=== PATIENT | female | born 1980 ===

== ENCOUNTER 2020-02-29 09:23 | Emergency (ER) | payer SELFPAY ==
[~2020-02-29] VITALS: Ht 149.9 cm; Wt 68.0 kg
--- OUTSIDE RECORDS SUMMARY | 2020-02-29 09:52 | XMS REPORT | Continuity of Care Document ---
Author Organization Unknown Address Unknown Phone Unavailable Allergies There is no data. Medications There is no data. Problems There is no data. Procedures There is no data. Results There is no data. Encounters ACCT No. Visit Date/Time Discharge Status Pt. Type Provider Facility Loc./Unit Complaint [id number] 02/29/2020 09:26:[address] Emergency THEODORE HERNANDEZ, ROEL Davalos [facility] ER FS CHEST PAIN
[2020-02-29] MEDS ORDERED: NS IV 500 ML 500 ML IV STA (09:57)
--- NOTE | 2020-02-29 10:01 | ED Cardiac General ---
History of Present Illness General Chief Complaint: Chest Pain Stated Complaint: CHEST PAIN Nursing Triage Note: Patient reports palpitations, shortness of breath, and left precordial chest pain intermittently since Friday. She denies any fever, cough, runny nose, nasal congestion, etc, denies any previous cardiac history. Patient also reports she is having vision problems with her left eye. Source: patient, RN/MD Exam Limitations: no limitations History of Present Illness Date Seen by Provider: Feb 29, 2020 Time Seen by Provider: 09:50 Initial Comments This patient is a 39-year-old female that presents to the emergency department complains of palpitations and when she has a fast heart rate it hurts her chest from the left. Patient states this is come and gone and has been going on for about 4 days. Happens when she is at work. We'll do medical evaluation treatment is needed patient denies cough denies any recent travel. Denies any significant medical history. Timing/Duration: 2-3 days Severity: mild Location: central Activities at Onset: activity NTG SL REGIONAL PROPERTY MANAGER: No ASA po REGIONAL PROPERTY MANAGER: No Allergies and Home Medications Allergies Coded Allergies: No Known Drug Allergies (Unverified , 02/29/20) Patient Home Medication List Home Medication List Reviewed: Yes Review of Systems Review of Systems Constitutional: No no symptoms reported, No see HPI, No chills, No diaphoresis, No dizziness, No fever, No malaise, No weakness, No weight gain, No weight loss, No other EENTM: No No Symptoms Reported, No See HPI, No Blurred Vision, No Double Vision , No Eye Pain, No Eye Tearing, No Ear Drainage, No Ear Pain, No Mouth Pain, No Mouth Swelling, No Nose Congestion, No Nose Pain, No Throat Pain, No Throat Swelling, No Other Respiratory: Denies No Symptoms Reported, Denies See HPI, Denies Cough, Denies Orthopnea, Denies Shortness of Air, Denies SOA With Exertion, Denies SOA at Rest, Denies Stridor, Denies Wheezing, Denies Other Cardiovascular: See HPI, Irregular Heart Rate Gastrointestinal: Denies No Symptoms Reported, Denies See HPI, Denies Abdomen Distended, Denies Abdominal Pain, Denies Blood Streaked Stools, Denies Constipated, Denies Diarrhea, Denies Difficulty Swallowing, Denies Nausea, Denies Poor Appetite, Denies Poor Fluid Intake, Denies Rectal Bleeding, Denies Vomiting, Denies Other Genitourinary: Denies No Symptoms Reported, Denies See HPI, Denies Burning, Denies Discharge, Denies Drainage, Denies Frequency, Denies Flank Pain, Denies Hematuria, Denies Incontinence, Denies Pain, Denies Urgency, Denies Other Musculoskeletal: No no symptoms reported, No see HPI, No back pain, No gout, No joint pain, No joint swelling, No muscle pain, No muscle stiffness, No muscle cramps, No muscle twitching, No muscle weakness, No neck pain, No other Skin: No no symptoms reported, No see HPI, No change in color, No change in hair/nails, No dryness, No hx of skin cancer, No lesions, No lumps, No pruritus, No rash, No other All Other Systems Reviewed Negative Unless Noted: Yes Past Lvijnop-Plvjdm-Nokczh Hx Patient Social History Recent Foreign Travel: No Contact w/Someone Who Travel: No Recent Infectious Disease Expo: No Physical Exam Vital Signs Vital Signs - First Documented 02/29/20 09:30 Temp 36.9 Pulse 74 Resp 30 B/P (MAP) 125/90 (102) Pulse Ox 99 O2 Delivery Room Air Capillary Refill : Less Than 3 Seconds Height, Weight, BMI Height: '" Weight: lbs. oz. kg; 30.00 BMI Method: General Appearance: No Apparent Distress, WD/WN Respiratory: Chest Non Tender, Lungs Clear, Normal Breath Sounds, No Accessory Muscle Use, No Respiratory Distress Cardiovascular: Regular Rate, Rhythm, No Edema, No Gallop, No JVD, No Murmur, Normal Peripheral Pulses Gastrointestinal: Normal Bowel Sounds, No Organomegaly, No Pulsatile Mass, Non Tender Neurologic/Psychiatric: Alert, Oriented x3, No Motor/Sensory Deficits, Normal Mood/Affect Skin: Normal Color, Warm/Dry Progress/Results/Core Measures Results/Orders Lab Results Laboratory Tests Test 02/29/20 10:00 02/29/20 10:05 02/29/20 10:10 Range/Units White Blood Count 7.5 4.3-11.0 10^3/uL Red Blood Count 4.15 L 4.35-5.85 10^6/uL Hemoglobin 12.9 11.5-16.0 G/DL Hematocrit 37 35-52 % Mean Corpuscular Volume 89 80-99 FL Mean Corpuscular Hemoglobin 31 25-34 PG Mean Corpuscular Hemoglobin Concent 35 32-36 G/DL Red Cell Distribution Width 12.5 10.0-14.5 % Platelet Count 304 130-400 10^3/uL Mean Platelet Volume 8.4 7.4-10.4 FL Neutrophils (%) (Auto) 68 42-75 % Lymphocytes (%) (Auto) 26 12-44 % Monocytes (%) (Auto) 6 0-12 % Eosinophils (%) (Auto) 1 0-10 % Basophils (%) (Auto) 0 0-10 % Neutrophils # (Auto) 5.1 1.8-7.8 X 10^3 Lymphocytes # (Auto) 1.9 1.0-4.0 X 10^3 Monocytes # (Auto) 0.4 0.0-1.0 X 10^3 Eosinophils # (Auto) 0.1 0.0-0.3 10^3/uL Basophils # (Auto) 0.0 0.0-0.1 10^3/uL D-Dimer 0.33 0.00-0.49 UG/ML Sodium Level 138 135-145 MMOL/L Potassium Level 3.5 L 3.6-5.0 MMOL/L Chloride Level 106 98-107 MMOL/L Carbon Dioxide Level 21 21-32 MMOL/L Anion Gap 11 5-14 MMOL/L Blood Urea Nitrogen 9 7-18 MG/DL Creatinine 0.67 0.60-1.30 MG/DL Estimat Glomerular Filtration Rate > 60 BUN/Creatinine Ratio 13 Glucose Level 138 H 70-105 MG/DL Calcium Level 8.3 L 8.5-10.1 MG/DL Troponin I < 0.30 <0.30 NG/ML Pro-B-Type Natriuretic Peptide 63.2 <75.0 PG/ML Urine Color YELLOW Urine Clarity CLEAR Urine pH 6.0 5-9 Urine Specific [place] 1.025 H 1.016-1.022 Urine Protein NEGATIVE NEGATIVE Urine Glucose (UA) NEGATIVE NEGATIVE Urine Ketones NEGATIVE NEGATIVE Urine Nitrite NEGATIVE NEGATIVE Urine Bilirubin NEGATIVE NEGATIVE Urine Urobilinogen 0.2 < = 1.0 MG/DL Urine Leukocyte Esterase NEGATIVE NEGATIVE Urine RBC (Auto) TRACE H NEGATIVE Urine Opiates Screen NEGATIVE NEGATIVE Urine Oxycodone Screen NEGATIVE NEGATIVE Urine Methadone Screen NEGATIVE NEGATIVE Urine Propoxyphene Screen NEGATIVE NEGATIVE Urine Barbiturates Screen NEGATIVE NEGATIVE Ur Tricyclic Antidepressants Screen POSITIVE H NEGATIVE Urine Phencyclidine Screen NEGATIVE NEGATIVE Urine Amphetamines Screen NEGATIVE NEGATIVE Urine Methamphetamines Screen NEGATIVE NEGATIVE Urine Benzodiazepines Screen NEGATIVE NEGATIVE Urine Cocaine Screen NEGATIVE NEGATIVE Urine Cannabinoids Screen NEGATIVE NEGATIVE My Orders Orders - ROEL JAIMES MD Ed Iv/Invasive Line Start (02/29/20 09:57) Basic Metabolic Panel (02/29/20 09:57) Probnp Fs (02/29/20 09:57) Troponin I Fs (02/29/20 09:57) Ekg Tracing (02/29/20 09:57) Chest 1 View Ap/Pa Only (02/29/20 09:57) Cbc With Automated Diff (02/29/20 09:57) Ns Iv 500 Ml (Sodium Chloride 0.9%) (02/29/20 09:57) Thyroid Stimulating Hormone (02/29/20 10:01) Drug Screen Stat (Urine) (02/29/20 10:01) Urinalysis Dipstick Only (02/29/20 10:10) Fibrin Degradation Products (02/29/20 10:45) Coronavirus Sars-Cov-2 So 2018 (02/29/20 11:08) Vital Signs/I&O 02/29/20 02/29/20 09:30 09:30 Temp 36.9 Pulse 74 Resp 30 B/P (MAP) 125/90 (102) Pulse Ox 99 O2 Delivery Room Air Room Air Blood Pressure Mean: 102 Progress Progress Note : Time: 11:34 Progress Note Patient is much improved after IV fluid bolus. Patient states all symptoms resolved. Negative evaluation otherwise in the emergency department. Patient is to encourage by mouth fluids. Tylenol Motrin as needed for fever pain. Follow-up with PCP in 2-3 days for further evaluation. Initial ECG Impression Date: Feb 29, 2020 Initial ECG Impression Time: 09:39 Initial ECG Rate: 78 Initial ECG Rhythm: Normal Sinus Initial ECG Intervals: Normal Initial ECG Impression: Nonspecific Changes Comment Sinus rhythm with a nonspecific ST changes heart rate 78 otherwise normal EKG Departure Impression Primary Impression: Palpitations Additional Impression: Chest wall pain Disposition: 01 HOME, SELF-CARE Condition: Stable Departure-Patient Inst. Decision time for Depature: 11:35 Referrals: NO,LOCAL PHYSICIAN (PCP) Primary Care Physician Patient Instructions: Palpitations (DC) Add. Discharge Instructions: Patient is to encourage by mouth fluids. Tylenol Motrin as needed for fever pain. Follow-up with PCP in 2-3 days for further evaluation. All discharge instructions reviewed with patient and/or family. Voiced understanding. ROEL JAIMES MD Feb 29, 2020 10:01
[2020-02-29 10:05] LABS: EOSINOPHILS % (AUTO) 1 % (0-10); HEMATOCRIT 37 % (35-52); HEMOGLOBIN 12.9 G/DL (11.5-16.0); LYMPHOCYTES % (AUTO) 26 % (12-44); MEAN CORPUSCULAR HEMOGLOBIN 31 PG (25-34); MEAN CORPUSCULAR HGB CONC 35 G/DL (32-36); MEAN CORPUSCULAR VOLUME 89 FL (80-99); MEAN PLATELET VOLUME 8.4 FL (7.4-10.4); MONOCYTES % (AUTO) 6 % (0-12); NEUTROPHILS % (AUTO) 68 % (42-75); PLATELET COUNT 304 10^3/uL (130-400); RED CELL DISTRIBUTION WIDTH 12.5 % (10.0-14.5); WHITE BLOOD COUNT 7.5 10^3/uL (4.3-11.0)
[2020-02-29 10:06] LABS: BASOPHILS % (AUTO) 0 % (0-10); EOSINOPHILS # (AUTO) 0.1 10^3/uL (0.0-0.3); LYMPHOCYTES # (AUTO) 1.9 X 10^3 (1.0-4.0); MONOCYTES # (AUTO) 0.4 X 10^3 (0.0-1.0); NEUTROPHILS # (AUTO) 5.1 X 10^3 (1.8-7.8)
[2020-02-29 10:14] LABS: BUN/CREATININE RATIO 13; CALCIUM 8.3 MG/DL (8.5-10.1); CARBON DIOXIDE 21 MMOL/L (21-32); CHLORIDE 106 MMOL/L (98-107); CREATININE SERUM 0.67 MG/DL (0.60-1.30); GFR ESTIMATED > 60; GLUCOSE 138 MG/DL (70-105); POTASSIUM 3.5 MMOL/L (3.6-5.0); SODIUM 138 MMOL/L (135-145)
[2020-02-29 10:20] LABS: CLARITY,URINE CLEAR; COLOR,URINE YELLOW
[2020-02-29 10:21] LABS: BILIRUBIN,URINE NEGATIVE (NEGATIVE); GLUCOSE, URINE (UA) NEGATIVE (NEGATIVE); KETONES,URINE NEGATIVE (NEGATIVE); LEUKOCYTE ESTERASE ,URINE NEGATIVE (NEGATIVE); NITRITE,URINE NEGATIVE (NEGATIVE); PROTEIN,URINE NEGATIVE (NEGATIVE)
[2020-02-29 10:33] LABS: AMPHETAMINE SCREEN, URINE NEGATIVE (NEGATIVE); BARBITURATE SCREEN URINE NEGATIVE (NEGATIVE); BENZODIAZEPINES SCREEN URINE NEGATIVE (NEGATIVE); CANNABINOID SCREEN, URINE NEGATIVE (NEGATIVE); COCAINE SCREEN URINE NEGATIVE (NEGATIVE); METHADONE STAT NEGATIVE (NEGATIVE); METHAMPHETAMINE SCREEN URINE S NEGATIVE (NEGATIVE); OPIATE SCREEN URINE NEGATIVE (NEGATIVE); OXYCODONE STAT NEGATIVE (NEGATIVE); PROPOXYPHENE STAT NEGATIVE (NEGATIVE); TRICYCLIC ANTIDEPRESSANTS SCRE POSITIVE (NEGATIVE)
--- NOTE | 2020-02-29 10:43 | Diagnostic Imaging Report ---
INDICATION: Chest pain FINDINGS: No focal consolidation. The lungs appeared clear at AP frontal radiograph. No failure, effusion or pneumothorax. IMPRESSION: No acute appearing abnormality appreciable radiographically. Dictated by: Dictated on workstation # [id number]
[2020-02-29 12:03] VITALS: BP 138/88
== END 2020-02-29 12:16 | disposition home or self-care (01) ==
LOC: ER FS 09:26
DX: R00.2 Palpitations (principal); R07.89 Other chest pain
CPT/HCPCS: 36415; 71045; 80048; 80306; 81002; 83880; 84443; 84484; 85025; 85379; 93005; 99284; U0002; 87635